=== PATIENT | female | born 1995 | race Caucasian/White ===

== ENCOUNTER 2022-11-27 18:14 | Emergency (ER) | payer MEDICAID, SELFPAY ==
[2022-11-27 18:16] VITALS: BP 156/82; PULSE 100; RESP 18; TEMP 37; O2SAT 99; BMI 48.3
--- NOTE | 2022-11-27 18:32 | ED.RN ---
pt stating she does not want to wait any longer and is going to conception.
== END 2022-11-27 18:32 | disposition left against medical advice (07) ==
LOC: ED 18:35
DX: R11.2 Nausea with vomiting, unspecified (principal); Z53.21 Procedure and treatment not carried out due to patient leaving prior to being seen by health care provider

== ENCOUNTER 2024-01-23 07:59 | Emergency (ER) | payer SELFPAY ==
[2024-01-23 08:01] VITALS: BP 156/91; PULSE 101; PULSE 102; RESP 28; TEMP 36; O2SAT 97; BMI 48.0
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
[2024-01-23 09:08] LABS: Internal QC Validated? YES +Cl - CLEAR BKGD; Pregnancy, Serum, hCG Quali. NEGATIVE Negative
[2024-01-23 09:17] LABS: Anion Gap 9 (5-15); BUN 7 mg/dL (7-18); BUN/Creat Ratio 9.7 RATIO (10-20); Calcium,Total 8.6 mg/dL (8.5-10.1); Chloride 110 mmol/L (98-107); Creatinine, Serum 0.72 mg/dL (0.55-1.02); EST Glomerular Filtration Rate 101 mL/min (>60); Est Glom Filt Rate - Afr Amer 122 mL/min (>60); Estimated Creatinine Clearance 150.82 ml/min; Glucose 94 mg/dL (74-106); Potassium 3.2 mmol/L (3.5-5.1); Sodium Level 140 mmol/L (136-145)
[2024-01-23 10:00] VITALS: BP 134/76; PULSE 88; RESP 16; TEMP 36.4; O2SAT 97
[2024-01-23 10:32] VITALS: BP 129/71; PULSE 68; RESP 15; TEMP 36.3; O2SAT 99
== END 2024-01-23 10:33 | disposition home or self-care (01) ==
PROVIDERS: Emergency Provider Emergency Medicine; Visit Provider Emergency Medicine
DX: S29.012A Strain of muscle and tendon of back wall of thorax, initial encounter (principal); Z68.42 Body mass index [BMI] 45.0-49.9, adult; Y04.8XXA Assault by other bodily force, initial encounter; J04.0 Acute laryngitis; E66.9 Obesity, unspecified; F17.210 Nicotine dependence, cigarettes, uncomplicated; F17.290 Nicotine dependence, other tobacco product, uncomplicated
CPT/HCPCS: 70491; 71250; 80048; 84703; 99283; Q9967; A4216

== ENCOUNTER 2024-04-27 22:08 | Emergency (ER) | payer SELFPAY ==
[2024-04-27 22:08] VITALS: BP 128/80; PULSE 102; RESP 22; TEMP 35.1; O2SAT 99
[2024-04-27] MEDS: Ondansetron ODT 4 MG Tablet PO (23:24)
[2024-04-27 23:34] LABS: Internal QC Validated? YES +Cl - CLEAR BKGD; Pregnancy, Urine Negative Negative
--- NOTE | 2024-04-27 23:42 | EDS_ITS ---
HPI History of Present Illness Chief Complaint: Nausea/Vomiting Informant: patient and spouse/S.O. Narrative Narrative: Patient is a 28-year-old female with no significant past medical history. She states that over the past 5 to 7 days she has been having bouts of nausea and vomiting. She denies any diarrhea or dysuria or abdominal pain. She denies any known sick contact. She states that she would have bouts of vomiting whether she ate or drank or not. However in the last 12 hours or so she was able to eat a sub and not have any bouts of vomit. She states she is concerned that she could be and that she had 1 home test that was positive and 1 that was negative and therefore comes in for evaluation [facility] Home Medications ?Medication ?Instructions ?Recorded ?Last Taken ?Type ondansetron 4 mg disintegrating 4 mg PO TID PRN nausea and 04/27/24 Unknown Rx tablet vomiting #21 tabs Allergy/AdvReac Type Severity Reaction Status Date / Time latex Allergy Rash Verified 04/27/24 22:11 Bleach (Sodium Hypochlorite) AdvReac Rash Verified 04/27/24 22:11 Surgical History (Updated 04/27/24 @ 22:27 by Mackenzie Medina) Tubal ligation status History of excision of pilonidal cyst Social History Smoking Status: Current every day smoker tobacco type: cigarettes and e- cigarettes ROS ROS ED Constitutional Constitutional ED: Denies chills or fever(s) ENT ENT ED: Denies sore throat Cardiovascular Cardiovascular: Denies chest pain Respiratory/Chest Respiratory/Chest: Denies cough or dyspnea Gastrointestinal Gastrointestinal: Reports nausea and vomiting; Denies abdominal pain, constipation or diarrhea Genitourinary Genitourinary ED: Denies dysuria, hematuria or urinary frequency Musculoskeletal Musculoskeletal: Denies back pain or myalgias Integumentary Denies rash Neurologic Neurologic: Denies headache(s) Hematologic/Lymphatic Hematologic/Lymphatic: Denies easy bleeding or easy bruising EXAM Physical Exam Const Vital Signs: 04/27/24 22:08 Temperature 95.2 F L Temperature Source Temporal Pulse Rate 102 H Respiratory Rate 22 H Blood Pressure 128/80 H Blood Pressure Mean 96 Pulse Ox 99 Oxygen Delivery Method Room Air Positive well nourished, well developed and obese General Appearance ED: well developed; Negative for pallor Nutritional Appearance: obese HEENT Reports dry mucous membranes HEENT Narrative: Mucous membranes are dry and tacky No tongue or lip swelling no oral lesions no airway edema or compromise No secondary changes in the posterior pharynx to suggest infection Mouth ED: Yes dry mucous membranes Mouth: dry mucous membranes Eyes PERRL and EOMs intact bilaterally General Eye ED: Negative for scleral icterus Neck supple Resp normal respiratory effort and clear to auscultation bilaterally Cardio regular rate and regular rhythm GI normal to inspection, nondistended, normoactive bowel sounds, non-tender, non- distended and no masses GI Narrative: No voluntary guarding or rigidity or pulsatile mass Negative Mera sign No pain over McBurney's point Auscultation: normoactive bowel sounds Palpation: soft Back/Spine no CVA tenderness Extremity normal to inspection Neuro oriented x3, CN's II-XII intact bilaterally and no sensory deficits noted Sensorium / Orientation: alert Motor Exam: strength 5/5 throughout Psych mental status grossly normal Skin no rashes or lesions noted Skin Narrative: Skin turgor is slightly increased General Skin Exam: Negative for jaundice or pallor MDM MDM MDM Narrative Medical decision making narrative: Patient presented to the ER with stable vitals and a soft nonsurgical abdomen. She reported bouts of nausea and vomiting throughout the week but recently was able to eat without recurrent symptoms. Differential diagnosis is for viral stomach infection such as Sneads virus versus rotavirus versus biliary colic versus acute cholecystitis versus pancreatitis versus dehydration versus acute kidney injury. An IV was attempted to be established but after 2 attempts there was no success. The patient did give a urine sample and therefore this was sent for as this was a main concern for her. Urine test was negative and after receiving Zofran patient had resolution of her nausea. We discussed obtaining an IV and checking abdominal labs and performing IV hydration but the patient does not want to undergo further IV attempt. As her dehydration is mild in nature I do not feel there is necessity and IV hydration as now that her vomiting is under control she can do this orally. Therefore patient will be discharged at this time with symptomatic care of Zofran History & Record Review Discussion w/independent historian: Patient and Significant other Lab Data Labs: Laboratory Results - last 24 hr 04/27/24 23:22 Urine Test Negative Discharge Plan Triage Chief Complaint: Nausea/Vomiting ED Provider: [place] Dx/Rx/DC Orders Clinical Impression: Nausea & vomiting, Mild dehydration Instructions: ED Dehydration (Adult), ED Gastroenteritis, Viral (Adult) Prescriptions: New ondansetron 4 mg tablet,disintegrating 4 mg PO TID PRN (Reason: nausea and vomiting) Qty: 21 0RF Primary Care Provider: Care Physician,No Primary Referrals: Shaheen Munroe MD [Med Staff - Active Staff] - Care Physician,No Primary [Primary Care Provider] - Print Language: Luxembourgish Disposition Disposition: Home, Self Care Discharge Date/Time: 04/27/24 23:55
== END 2024-04-27 23:55 | disposition home or self-care (01) ==
PROVIDERS: Emergency Provider Emergency Medicine; Visit Provider Emergency Medicine
DX: R11.2 Nausea with vomiting, unspecified (principal); E86.0 Dehydration; F17.210 Nicotine dependence, cigarettes, uncomplicated; F17.290 Nicotine dependence, other tobacco product, uncomplicated
CPT/HCPCS: 81025; 99282; A4216

== ENCOUNTER → 2025-06-30 | Outpatient (CLI) | payer SELFPAY ==
--- OUTSIDE RECORDS SUMMARY | 2025-06-30 15:25 | XMS RPT_ITS | CCD ---
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 DIMER, MORPH, CBC, DIFF, BMP #### [address] [address] Neutrophil, Abs Manual 4.3 10 3/mcL Normal 2.9-6.2 [facility] ([place] Comment on above: Performed By: #### M DW, GFR, TROPHS, DIMER, MORPH, CBC, DIFF, BMP #### [address] [address] Nucleated RBC 0.0 /100 WBC Normal [facility] ([place]) Comment on above: Performed By: #### M DW, GFR, TROPHS, DIMER, MORPH, CBC, DIFF, BMP #### [address] [address] .Morphon 12-06-2023 Anisocytosis Ql (Bld) 1+ Normal [facility] ([place]) Comment on above: Performed By: #### M DW, GFR, TROPHS, DIMER, MORPH, CBC, DIFF, BMP #### [address] [address] Hypochrom 1+ Normal [facility] ([place] Comment on above: Performed By: #### M DW, GFR, TROPHS, DIMER, MORPH, CBC, DIFF, BMP #### [address] [address] Large Platelets Few Normal [facility] ([place]) Comment on above: Performed By: #### M DW, GFR, TROPHS, DIMER, MORPH, CBC, DIFF, BMP #### [address] [address] Platelet Estimate Normal Normal [facility] ([place] Comment on above: Performed By: #### M DW, GFR, TROPHS, DIMER, MORPH, CBC, DIFF, BMP #### [address] [address] BMPon 12-06-2023 Potassium [Moles/Vol] 3.4 mmol/L Low 3.5-5.1 [facility] ([place]) Comment on above: Performed By: #### M DW, GFR, TROPHS, DIMER, MORPH, CBC, DIFF, BMP #### [address] [address] BUN/Creatinine Ratio 14 ratio Normal 7-27 [facility] ([place]) Comment on above: Performed By: #### M DW, GFR, TROPHS, DIMER, MORPH, CBC, DIFF, BMP #### [address] [address] Calcium [Mass/Vol] 8.7 mg/dL Normal 8.4-10.2 [facility] ([place]) Comment on above: Performed By: #### M DW, GFR, TROPHS, DIMER, MORPH, CBC, DIFF, BMP #### [address] [address] Chloride [Moles/Vol] 103 mmol/L Normal 98-107 [facility] ([place]) Comment on above: Performed By: #### M DW, GFR, TROPHS, DIMER, MORPH, CBC, DIFF, BMP #### [address] [address] CO2 [Moles/Vol] 27 mmol/L Normal 22-29 [facility] ([place]) Comment on above: Performed By: #### M DW, GFR, TROPHS, DIMER, MORPH, CBC, DIFF, BMP #### [address] [address] Creatinine [Mass/Vol] 0.80 mg/dL Normal 0.55-1.02 [facility] ([place]) Comment on above: Performed By: #### M DW, GFR, TROPHS, DIMER, MORPH, CBC, DIFF, BMP #### [address] [address] Electrolyte Balance 10.0 mEq/L Normal 4.0-15.0 [facility] ([place]) Comment on above: Performed By: #### M DW, GFR, TROPHS, DIMER, MORPH, CBC, DIFF, BMP #### [address] [address] Glucose [Mass/Vol] 131 mg/dL High 70-105 [facility] ([place]) Comment on above: Performed By: #### M DW, GFR, TROPHS, DIMER, MORPH, CBC, DIFF, BMP #### [address] [address] Sodium [Moles/Vol] 140 mmol/L Normal 136-145 [facility] ([place]) Comment on above: Performed By: #### M DW, GFR, TROPHS, DIMER, MORPH, CBC, DIFF, BMP #### [address] [address] Urea nitrogen [Mass/Vol] 11 mg/dL Normal 7-18 [facility] ([place] Comment on above: Performed By: #### M DW, GFR, TROPHS, DIMER, MORPH, CBC, DIFF, BMP #### [address] [address] CBCon 12-06-2023 Erythrocyte distribution width (RBC) [Ratio] 14.0 % Normal 11.5-14.5 [facility] ([place]) Comment on above: Performed By: #### M DW, GFR, TROPHS, DIMER, MORPH, CBC, DIFF, BMP #### [address] [address] Hematocrit (Bld) [Volume fraction] 42.5 % Normal 37.0-47.0 [facility] ([place] Comment on above: Performed By: #### M DW, GFR, TROPHS, DIMER, MORPH, CBC, DIFF, BMP #### [address] [address] Hgb 14.9 G/dL Normal 12.0-16.0 [facility] ([place] Comment on above: Performed By: #### M DW, GFR, TROPHS, DIMER, MORPH, CBC, DIFF, BMP #### [address] [address] MCH (RBC) [Entitic mass] 32.6 pg High 27.0-31.2 [facility] ([place] Comment on above: Performed By: #### M DW, GFR, TROPHS, DIMER, MORPH, CBC, DIFF, BMP #### [address] [address] MCHC 34.9 G/dL Normal 33.0-37.0 [facility] ([place] Comment on above: Performed By: #### M DW, GFR, TROPHS, DIMER, MORPH, CBC, DIFF, BMP #### [address] [address] MCV (RBC) [Entitic vol] 93.2 fL Normal 80.0-94.0 [facility] ([place] Comment on above: Performed By: #### M DW, GFR, TROPHS, DIMER, MORPH, CBC, DIFF, BMP #### [address] [address] Platelet 267 10 3/mcL Normal 130-400 [facility] ([place]) Comment on above: Performed By: #### M DW, GFR, TROPHS, DIMER, MORPH, CBC, DIFF, BMP #### [address] [address] Platelet mean volume (Bld) [Entitic vol] 8.6 fL Normal 7.4-10.4 [facility] ([place]) Comment on above: Performed By: #### M DW, GFR, TROPHS, DIMER, MORPH, CBC, DIFF, BMP #### [address] [address] RBC 4.57 10 6/mcL Normal 4.20-5.40 [facility] ([place]) Comment on above: Performed By: #### M DW, GFR, TROPHS, DIMER, MORPH, CBC, DIFF, BMP #### [address] [address] WBC 6.3 10 3/mcL Normal 4.6-10.8 [facility] ([place]) Comment on above: Performed By: #### M DW, GFR, TROPHS, DIMER, MORPH, CBC, DIFF, BMP #### [address] [address] DIMERon 12-06-2023 D-Dimer <200 Normal 0-230 [facility] ([place]) Comment on above: Result Comment: DDN: Results reported in D-DU ng/mL. Negative for D-dimer. DVT/PE is highly unlikely. Note: False negative results may be seen in patients on anticoagulant therapy. The result of the D-Dimer test should be evaluated in the context of all the clinical and laboratory data available. In those instances where the laboratory result does not agree with the clinical evaluation, additional tests should be performed accordingly. If the D-Dimer result is used to exclude DVT or PE, the recommended cutoff value is less than 230 ng/mL. The D-Dimer result should not be used alone to rule in DVT/PE, but should be used in conjunction with a clinical pretest probability (PTP)assessment model to exclude venous thromboembolism (VTE) in outpatients suspected of deep venous thrombosis (DVT) and pulmonary embolism (PE). Performed By: #### M DW, GFR, TROPHS, DIMER, MORPH, CBC, DIFF, BMP #### [address] [place] [address] LABORATORYOrdered By: SYSTEM SYSTEM on 12-06-2023 Anisocytosis Ql (Bld) 1+ *NA* (12/06/23 3:07 AM) Invalid Interpretation Code AO Workflow SS Basophil %, Manual 1.0 % Normal 0.0 - 2.5 % AO Wo rkflow SS Basophil, Abs Manual 0.1 103/mcL Normal 0.0 - 0 .2 10^3/mcL AO Workflow SS Calcium [Mass/Vol] 8.7 mg/dL Normal 8.4 - 10. 2 mg/dL AO ADM SS Chloride [Moles/Vol] 103 mmol/L Normal 98 - 10 7 mmol/L AO ADM SS CO2 [Moles/Vol] 27 mmol/L Normal 22 - 29 mmol/L AO ADM SS Creatinine [Mass/Vol] 0.80 mg/dL Normal 0.55 - 1.02 mg/dL AO ADM SS Electrolyte Balance 10.0 mEq/L Normal 4.0 - 15 .0 mEq/L AO ADM SS Eosinophil %, Manual 0.0 % Normal 0.0 - 7.0 % AO Workflow SS Eosinophils (Bld) [#/Vol] 0.0 103/mcL Normal 0.0 - 0.4 10^3/mcL AO Workflow SS Erythrocyte distribution width (RBC) [Ratio] 14.0 % Normal 11.5 - 14.5 % AO Workflow SS GFR/1.73 sq M.predicted among blacks MDRD (S/P/Bld) [Vol rate/Area] 102 ml/min/1.73sqm Invalid Interpretation Code AO Chemistry S Comment on above: Interpretive Data: GFR Population mean for , Non- Americans Ages 20-29 = 116 mL/min/1.73 sq.m. Ages 30-39 = 107 mL/min/1.73 sq.m. Ages 40-49 = 99 mL/min/1.73 sq.m. Ages 50-59 = 93 mL/min/1.73 sq.m. Ages 60-69 = 85 mL/min/1.73 sq.m. Ages 70+ = 75 mL/min/1.73 sq.m. Chronic Kidney Disease: Less than 60 mL/min/1.73 square meters End Stage Renal Disease: Less than 15 mL/min/1.73 square meters GFR/1.73 sq M.predicted among non-blacks MDRD (S/P/Bld) [Vol rate/Area] 84 ml/min/1.73sqm Invalid Interpretation Code AO Chemistry S Comment on above: Interpretive Data: GFR Population mean for , Non- Americans Ages 20-29 = 116 mL/min/1.73 sq.m. Ages 30-39 = 107 mL/min/1.73 sq.m. Ages 40-49 = 99 mL/min/1.73 sq.m. Ages 50-59 = 93 mL/min/1.73 sq.m. Ages 60-69 = 85 mL/min/1.73 sq.m. Ages 70+ = 75 mL/min/1.73 sq.m. Chronic Kidney Disease: Less than 60 mL/min/1.73 square meters End Stage Renal Disease: Less than 15 mL/min/1.73 square meters Glucose [Mass/Vol] 131 mg/dL High 70 - 105 mg/dL AO ADM SS Hematocrit (Bld) [Volume fraction] 42.5 % Normal 37.0 - 47.0 % AO Workflow SS Hemoglobin (Bld) [Mass/Vol] 14.9 G/dL Normal 12.0 - 16.0 G/dL AO Workflow SS Hypochromia Ql (Bld) 1+ *NA* (12/06/23 3:07 AM) Invalid Interpretation Code AO Workflow SS Large Platelets Few *NA* (12/06/23 3:07 AM) Invalid Interpretation Code AO Workflow SS Lymphocyte %, Manual 24.0 % Normal 10.0 - 50.0 % A O Workflow SS Lymphocyte, Abs Manual 1.5 103/mcL Normal 0.8 - 3.9 10^3/mcL AO Workflow SS MCH (RBC) [Entitic mass] 32.6 pg High 27.0 - 31.2 pg AO Workflow SS MCHC 34.9 G/dL Normal 33.0 - 37.0 G/dL AO Workflow SS MCV (RBC) [Entitic vol] 93.2 fL Normal 80.0 - 94.0 fL AO Workflow SS Monocyte %, Manual 6.0 % Normal 1.7 - 13.0 % AO W orkflow SS Monocyte distribution width Auto (Bld) [Entitic vol] 24.02 1 High 0.00 - 20.00 AO Workflow SS Comment on above: Result Comment: For adults in ED, MDW>20.0 may be associated with a higher risk of sepsis during the first 12hrs of hospital admission The predictive value of MDW for identifying sepsis in patients with hematological abnormalities has not been established Monocyte, Abs Manual 0.4 103/mcL Normal 0.2 - 1 .0 10^3/mcL AO Workflow SS Neutrophil %, Manual 69.0 % Normal 37.0 - 80.0 % A O Workflow SS Neutrophil, Abs Manual 4.3 103/mcL Normal 2.9 - 6.2 10^3/mcL AO Workflow SS Nucleated RBC 0.0 /100 WBC Invalid Interpretation Code AO Workflow SS Platelet Estimate Normal *NA* (12/06/23 3:07 AM) Invalid Interpretation Code AO Workflow SS Platelet mean volume (Bld) [Entitic vol] 8.6 fL Normal 7.4 - 10.4 fL AO Workflow SS Platelets (Bld) [#/Vol] 267 103/mcL Normal 130 - 400 10^3/mcL AO Workflow SS Potassium [Moles/Vol] 3.4 mmol/L Low 3.5 - 5.1 mmol/L AO ADM SS RBC (Bld) [#/Vol] 4.57 106/mcL Normal 4.20 - 5.4 0 10^6/mcL AO Workflow SS Sodium [Moles/Vol] 140 mmol/L Normal 136 - 145 mmol/L AO ADM SS Troponin I.cardiac DL <= 0.01 ng/mL [Mass/Vol] 4 ng/L Normal 0 - 51 ng/L AO ADM SS Comment on above: Interpretive Data: H igh Sensitive Troponin I Reference Ranges: Female: 0-51 ng/L Male: 0-76 ng/L Testing performed on Surgient using a homogeneous sandwich chemiluminescent immunoassay based on [employer] technology. Urea nitrogen [Mass/Vol] 11 mg/dL Normal 7 - 18 mg/dL AO ADM SS Urea nitrogen/Creatinine [Mass ratio] 14 ratio Normal 7 - 27 ratio AO ADM SS WBC (Bld) [#/Vol] 6.3 103/mcL Normal 4.6 - 10.8 10^3/mcL AO Workflow SS LABORATORYOrdered By: Estefania Molina on 12-06-2023 Fibrin D-dimer DDU (PPP) [Mass/Vol] ng/mL D-DU Normal 0 - 230 ng/mL D-DU AO [employer] SS Comment on above: Result Comment: DDN: Results reported in D-DU ng/mL. Negative for D-dimer. DVT/PE is highly unlikely. Note: False negative results may be seen in patients on anticoagulant therapy. Interpretive Data: T he result of the D-Dimer test should be evaluated in the context of all the clinical and laboratory data available. In those instances where the laboratory result does not agree with the clinical evaluation, additional tests should be performed accordingly. If the D-Dimer result is used to exclude DVT or PE, the recommended cutoff value is less than 230 ng/mL. The D-Dimer result should not be used alone to rule in DVT/PE, but should be used in conjunction with a clinical pretest probability (PTP)assessment model to exclude venous thromboembolism (VTE) in outpatients suspected of deep venous thrombosis (DVT) and pulmonary embolism (PE). TROPHSon 12-06-2023 High Sensitivity Troponin I 4 ng/L Normal 0-51 [facility] ([place]) Comment on above: Result Comment: High Sensitive Troponin I Reference Ranges: Female: 0-51 ng/L Male: 0-76 ng/L Testing performed on Surgient using a homogeneous sandwich chemiluminescent immunoassay based on [employer] technology. Performed By: #### M DW, GFR, TROPHS, DIMER, MORPH, CBC, DIFF, BMP #### [address] [address] XR CHEST 1 VIEWon 12-06-2023 XR CHEST 1 VIEW ORIGINAL EXAMINATION: ONE XRAY VIEW OF THE CHEST12/06/2023 3:24 am COMPARISON: None. HISTORY: ORDERING SYSTEM PROVIDED HISTORY: Reason for Exam: chest pain FINDINGS: Cardiomediastinal contours are within normal limits. No focal consolidation or pulmonary edema. No pneumothorax or pleural effusion. No acute osseous abnormalities. IMPRESSION: No acute radiographic process. I have personally reviewed the images of this examination, and agree with the resident's findings and interpretation. Interpreted by: Slim Kirkpatrick MD Preliminary Report By: Kehinde Ch Electronically signed By Slim Kirkpatrick MD Dictated Date: 12/06/2023 3:28:08 AM Prelim Date: 12/06/2023 3:29:12 AM Sign Date: 12/06/2023 3:33:32 AM Ordering Provider: LOREN Uribe [facility] ([place]) CNCOon 03-17-2021 CNCO Letter Text Normal [facility] Vital Signs Date Time Vital Sign Value Performing Clinician Facility 12-06-2023 03:59-0400 Diastolic Blood Pressure Non-Invasive 72 mm[Hg] DR LOREN LYN DO [facility] 12-06-2023 03:59-0400 Heart rate 96 /min DR LOREN LYN DO [facility] 12-06-2023 03:59-0400 Respiratory rate 20 /min DR LOREN LYN DO [facility] 12-06-2023 03:59-0400 Systolic Blood Pressure Non-Invasive 134 mm[Hg] DR LOREN LYN DO [facility] 12-06-2023 02:36-0400 Body temperature 98.42 [degF] DR LOREN LYN DO [facility] 12-06-2023 02:36-0400 Diastolic Blood Pressure Non-Invasive 84 mm[Hg] DR LOREN LYN DO [facility] 12-06-2023 02:36-0400 Heart rate 120 /min DR LOREN LYN DO [facility] 12-06-2023 02:36-0400 Respiratory rate 20 /min DR LOREN LYN DO [facility] 12-06-2023 02:36-0400 Systolic Blood Pressure Non-Invasive 135 mm[Hg] DR LOREN LYN DO [facility] 11-27-2022 18:16-0400 Body height 162.56 cm [facility] 11-27-2022 18:16-0400 Body mass index (BMI) [Ratio] 48.3 kg/m2 [facility] 11-27-2022 18:16-0400 Body temperature 98.6 [degF] [facility] 11-27-2022 18:16-0400 Body weight 127.73 kg [facility] 11-27-2022 18:16-0400 Diastolic blood pressure 82 mm[Hg] [facility] 11-27-2022 18:16-0400 Heart rate 100 /min [facility] 11-27-2022 18:16-0400 Respiratory rate 18 /min [facility] 11-27-2022 18:16-0400 SaO2% (BldA) [Mass fraction] 99 % [facility] 11-27-2022 18:16-0400 Systolic blood pressure 156 mm[Hg] [facility] 08-01-2021 20:59-0500 Body temperature 98.24 [degF] ERICKA EUGENE MD [facility] 08-01-2021 20:59-0500 Body weight 121.4 kg ERICKA EUGENE MD [facility] 08-01-2021 20:59-0500 Diastolic blood pressure 75 mm[Hg] ERICKA EUGENE MD [facility] 08-01-2021 20:59-0500 Heart rate 67 /min ERICKA EUGENE MD [facility] 08-01-2021 20:59-0500 Respiratory rate 18 /min ERICKA EUGENE MD [facility] 08-01-2021 20:59-0500 Systolic blood pressure 148 mm[Hg] ERICKA EUGENE MD [facility] Encounters Encounter Date Encounter Type Care Provider Facility Start: 04-27-2024 End: 04-27-2024 Emergency department patient visit Holland Martínez Facility:[facility] Start: 01-23-2024 End: 01-23-2024 Emergency department patient visit Will [address] Facility:[facility] Start: 12-06-2023 End: 12-06-2023 Emergency department patient visit DR LOREN LYN DO Facility: Start: 12-06-2023 End: 12-06-2023 Emergency department patient visit DR LOREN LYN DO [facility] Start: 11-27-2022 End: 11-27-2022 Emergency department patient visit [facility] Start: 08-01-2021 End: 08-01-2021 Emergency department patient visit ERICKA EUGENE MD [facility] Procedures Date Procedure Procedure Detail Performing Clinician Start: 09-29-2019 Pilonidal cyst (morp hologic abnormality) ERICKA EUGENE MD Start: 12-12-2017 Laparoscopic salpingectomy ERICKA EUGENE MD Cyst - pilonidal (disorder) ERICKA EUGENE MD Ligation of fallopian tube Aniceto EUGENE MD Immunizations Immunization Date Immunization Notes Care Provider Israel lindsay 10-11-2017 tetanus toxoid, redu jie diphtheria toxoid, and acellular pertussis vaccine, adsorbed; Translations: [Boostrix (Tdap)] ERICKA EUGENE MD [facility] Payers Date Payer Category Payer Self-pay [id number] 2023 Private Health Insurance [id number] 2012 Unknown [facility] [employer] [id number] 1993 Unknown [id number] Unknown [id number] Unknown [id number] Social History Date Type Detail Facility Start: 09-23-2019 Heavy tobacco smoker (finding) [facility] Sex Assigned At [facility] Start: 03-12-2014 Tobacco smoking status MAIS Unknown if ever smoked [facility] Start: 1995 Sex Assigned At Female [facility] NEGATED: Highlighted row [facility] Functional Status Date Assessment Result Facility 12-06-2023 Functional Status Assistive Device None A [facility] 12-06-2023 Functional Status Repositions self [facility] Mental Status Date Assessment Result Facility 12-06-2023 Mental Status Orientation Oriented x [facility] 12-06-2023 Mental Status [facility] Discharge instructions 12-06-2023 Note Date & Type Note Facility 12-06-2023 Hospital Discharg e instructions Patient Education 12/06/2023 04:06:29 Adult Self-Care for Colds Adult Self-Care for Colds Colds are caused by viruses. They can't be cured with antibiotics. However, you can ease symptoms and support your body's efforts to heal itself. No matter which symptoms you have, be sure to: Drink plenty of fluids (water or clear soup) Stop smoking and drinking alcohol Get plenty of rest Understand a fever Take your temperature several times a day. If your fever is 100.4 F (38.0 C) for more than a day, call your healthcare provider. Relax, lie down. Go to bed if you want. Just get off your feet and rest. Also, drink plenty of fluids to avoid dehydration. Take acetaminophen or a nonsteroidal anti-inflammatory agent (NSAID), such as ibuprofen. Treat a troubled nose kindly Breathe steam or heated humidified air to open blocked nasal passages. station inspector a hot shower or use a vaporizer. Be careful not to get burned by the steam. Saline nasal sprays and decongestant tablets help open a stuffy nose. Antihistamines can also help, but they can cause side effects such as drowsiness and drying of the eyes, nose, and mouth. Soothe a sore throat and cough Gargle every 2 hours with 1/4 teaspoon of salt dissolved in 1/2 cup of warm water. Suck on throat lozenges and cough drops to moisten your throat. Cough medicines are available but it is unclear how well they actually work. Take acetaminophen or an NSAID, such as ibuprofen, to ease throat pain Ease digestive problems Put fluids back into your body. Take frequent sips of clear liquids such as water or broth. Avoid drinks that have a lot of sugar in them, such as juices and sodas. These can make diarrhea worse. Older children and adults can drink sports drinks. As your appetite returns, you can resume your normal diet. Ask your healthcare provider if there are any foods you should avoid. When you first notice symptoms, ask your healthcare provider if antiviral medicines are appropriate. Antibiotics should not be taken for colds or flu. Also, call your healthcare provider if you have any of the following symptoms or if you aren't feeling better after 7 days: Shortness of breath Pain or pressure in the chest or belly (abdomen) Worsening symptoms, especially after a period of improvement Fever of 100.4 F (38.0 C) or higher, or fever that doesn't go down with medicine Sudden dizziness or confusion Severe or continued vomiting Signs of dehydration, including extreme thirst, dark urine, infrequent urination, dry mouth Spotted, red, or very sore throat [id number] [employer]. [address] [place] [address]. All rights reserved. This information is not intended as a substitute for professional medical care. Always follow your healthcare professional's instructions. Follow Up Care 12/06/2023 02:31:40 With:RUIZ HONG DO Address: [address] [place] [phone] When:2-4 days [facility] Clinical Note 12-06-2023 Note Date & Type Note Facility 12-06-2023 Note Discharge Instructions Thank you for allowing [facility] to assist you with your healthcare needs. The following is important discharge information regarding your hospital visit. Diagnosis from Today's Visit Cough What to Do Next Instructions from Your Care Team No qualifying data available. Post Acute Orders No qualifying data available. You Need to Schedule the Following Appointments Follow Up with RUIZ HONG DO When Within 2-4 days Where: [address] [place] [phone] Allergies Bleach (Rash) Latex (Rash) Medications Please ask your primary doctor or pharmacist before taking any other medication not listed, including over the counter drugs, herbal medications, vitamins and or supplements as they may interact with your home medications. What How Much When Why Instructions Last Dose New benzonatate (Tessalon Perles 100 mg oral capsule) 1 cap by mouth Three (3) times a day Duration: 7 Days Printed Prescription New cetirizine (Zyrtec 10 mg oral tablet) 1 tab(s) by mouth Once a day Duration: 7 Days Printed Prescription Unchanged acetaminophen-hydrocodone ([place] 325- 5 mg oral tablet) 1 tab(s) by mouth Every 6 hours as needed for as needed for pain UTI - Urinary tract infection Duration: 1 Days Unchanged albuterol (ProAir HFA MDI (90 mcg/ inh) inhalation aerosol) 1 puff(s) by inhalation Every 4 hours as needed for for wheezing Unchanged cephalexin (cephalexin 500 mg oral capsule) 1 cap by mouth Three (3) times a day UTI - Urinary tract infection Duration: 5 Days Unchanged ibuprofen (ibuprofen 800 mg oral tablet) take 1 tablet by mouth every 6 hours if needed for pain Unchanged ondansetron (Zofran 4 mg oral tablet) 1 tab(s) by mouth Every 6 hours as needed for Nausea/Vomiting Vomiting without nausea Nausea and vomiting Please take this list to your next doctor s visit. Bring all medications you take, including over the counter medications, herbals and other supplements with you to your doctor s visit. Patients and families are reminded to discard old lists and to update any records with all medication providers or retail pharmacies. Education Materials Adult Self-Care for Colds Colds are caused by viruses. They can't be cured with antibiotics. However, you can ease symptoms and support your body's efforts to heal itself. No matter which symptoms you have, be sure to: Drink plenty of fluids (water or clear soup) Stop smoking and drinking alcohol Get plenty of rest Understand a fever Take your temperature several times a day. If your fever is 100.4 F (38.0 C) for more than a day, call your healthcare provider. Relax, lie down. Go to bed if you want. Just get off your feet and rest. Also, drink plenty of fluids to avoid dehydration. Take acetaminophen or a nonsteroidal anti-inflammatory agent (NSAID), such as ibuprofen. Treat a troubled nose kindly Breathe steam or heated humidified air to open blocked nasal passages. station inspector a hot shower or use a vaporizer. Be careful not to get burned by the steam. Saline nasal sprays and decongestant tablets help open a stuffy nose. Antihistamines can also help, but they can cause side effects such as drowsiness and drying of the eyes, nose, and mouth. Soothe a sore throat and cough Gargle every 2 hours with 1/4 teaspoon of salt dissolved in 1/2 cup of warm water. Suck on throat lozenges and cough drops to moisten your throat. Cough medicines are available but it is unclear how well they actually work. Take acetaminophen or an NSAID, such as ibuprofen, to ease throat pain Ease digestive problems Put fluids back into your body. Take frequent sips of clear liquids such as water or broth. Avoid drinks that have a lot of sugar in them, such as juices and sodas. These can make diarrhea worse. Older children and adults can drink sports drinks. As your appetite returns, you can resume your normal diet. Ask your healthcare provider if there are any foods you should avoid. When you first notice symptoms, ask your healthcare provider if antiviral medicines are appropriate. Antibiotics should not be taken for colds or flu. Also, call your healthcare provider if you have any of the following symptoms or if you aren't feeling better after 7 days: Shortness of breath Pain or pressure in the chest or belly (abdomen) Worsening symptoms, especially after a period of improvement Fever of 100.4 F (38.0 C) or higher, or fever that doesn't go down with medicine Sudden dizziness or confusion Severe or continued vomiting Signs of dehydration, including extreme thirst, dark urine, infrequent urination, dry mouth Spotted, red, or very sore throat [id number] [employer]. [address] [place] [address]. All rights reserved. This information is not intended as a substitute for professional medical care. Always follow your healthcare professional's instructions. Additional Information VACCINATE! IT SAVES LIVES! Members of the community who have not yet received the COVID-19 vaccine and would like to receive it can visit one of [facility] vaccine clinics. There are many vaccine clinic locations within the [facility]. For locations and available times, please visit [email or web address].[email or web address]/. It is important to note that some COVID mobile vaccine clinics are held outdoors and may be canceled in rainy or stormy conditions. To learn more about pediatric vaccinations (ages 5-11), we invite you to visit the [facility] webpage. [email or web address]/[email or web address]-[email or web address] -Questions.html To learn more about the COVID-19 vaccine, we invite you to visit the CDC website for a list of frequently asked questions. https://www.cdc.gov/coronavirus/2019-n cov/vaccines/faq.html [facility] Patient Portal Access Instructions: Stay connected with your healthcare team and access your personal medical information anytime with the [facility] Patient Portal. If you would like a full copy of your medical records please contact the [facility] Medical Records Department Sunday through Sunday between 8a.m. and 4:30p.m. Please follow the directions below to access the portal: 1.Access the email account you provided upon registration to the [facility].2.Look for an invitation email from [facility].3.Open the email and access the invitation link: Accept Invitation to [facility]4.Fill in the required hutson to create your account. Sign into [email or web address] with your username and password that you created in the above steps to stay up to date. You can then view a summary of results, a summary of your visits, and the ability to download your summaries to your computer or send the information securely to a physician. Remember that your healthcare information is confidential, so carefully consider who you will allow to register on the [facility] Patient Portal for access to your information. You can also access the [facility] Patient Portal on the [employer]. Simply click on Health Records under Health Data and then click on the [employer] logo. HOW TO SAFELY DISPOSE OF PRESCRIPTION MEDICATIONS Please use one of the following methods to safely dispose of your unused medications. 1.Use a drug disposal kit: the drug disposal pouch allows you to safely discard your old and unused drugs. Ask your nurse to give you one when you are discharged.2.Visit a local take-back location: Many local pharmacies and police departments have programs that collect old and unwanted prescription drugs. Call your local pharmacy or go to http://Elderscan.[employer] Media/4B4Ku7t to find one close to you.3.Make use of household items: Use cat litter or old coffee grounds to dispose medications if other options are not available. Mix your drugs with these household products, seal them in an airtight container and throw it into the garbage. Call [facility]: [phone] to be sure your drugs can be disposed of in this way. Some medicines may require a different approach.4.Never flush your medications down the toilet. IF YOU HAVE BEEN PRESCRIBED AN OPIOIDS FOR PAIN If you have been prescribed an opioid (such as hydrocodone, oxycodone or morphine), it is critical to understand the possible side effects and risks of opioid pain medications. Even when taken as directed, opioids can have several side effects including: Tolerance, meaning you might need to take more of a medication for the same pain relief. Nausea, vomiting and/or constipation. Sleepiness, dizziness, dry mouth, confusion, depression or itching. Physical dependence, meaning you have withdrawal symptoms when a medication is stopped ? this can develop within a few days. KNOW YOUR RESPONSIBILITIES It is important to know exactly how much and how often to take the opioid pain medications you are prescribed. Never take opioids in higher amounts or more often than prescribed. Do not combine opioids with alcohol or other drugs that cause drowsiness, such as benzodiazepines, also known as benzos, including diazepam and alprazolam, muscle relaxants or sleep aids. Never sell or share prescription opioids. This is illegal. Store opioids in a secure place and out of reach of others (including children, family, friends and visitors). The last page(s) of this document has been signed and retained as a CHART COPY Signatures Patient Education Materials Adult Self-Care for Colds Medication Leaflets My discharge plan and instructions have been reviewed and explained to me and ILUDWIN TIA J understand my current condition and have read and understand these discharge instructions. I have received a written copy of the plan/instructions. If I have questions, I am aware that I should contact my doctor. Patient/Customer Supply Chain Analyst Signature: _ Date/Time: Relationship to Patient: Witness Name/Signature: Date/Time: [facility] Clinical Note 12-06-2023 Note Date & Type Note Facility 12-06-2023 Note ORIGINAL EXAMINATION: ONE XRAY VIEW OF THE CHEST12/06/2023 3:24 am COMPARISON: None. HISTORY: ORDERING SYSTEM PROVIDED HISTORY: Reason for Exam: chest pain FINDINGS: Cardiomediastinal contours are within normal limits. No focal consolidation or pulmonary edema. No pneumothorax or pleural effusion. No acute osseous abnormalities. IMPRESSION: No acute radiographic process. I have personally reviewed the images of this examination, and agree with the resident's findings and interpretation. Interpreted by: Slim Kirkpatrick MD Preliminary Report By: Kehinde Ch Electronically signed By Slim Kirkpatrick MD Dictated Date: 12/06/2023 3:28:08 AM Prelim Date: 12/06/2023 3:29:12 AM Sign Date: 12/06/2023 3:33:32 AM Ordering Provider: LOREN LYN [facility] Clinical Note 12-06-2023 Note Date & Type Note Facility 12-06-2023 Note Sinus tachycardia RSR' in V1 or V2, right VCD or RVH Nonspecific T abnormalities, lateral leads Electronic Signature: LOREN LYN DO 12/06/2023 02:56:44 [facility] Hospital Discharge instructions 08-01-2021 Note Date & Type Note Facility 08-01-2021 Hospital Discharg e instructions Patient Education 08/01/2021 21:54:39 DIARRHEA, Viral (6y-Adult) Viral Diarrhea (Adult) Diarrhea is usually due to viral gastroenteritis, another name for the stomach flu. This virus affects the stomach and intestinal tract and usually lasts 2 to 7 days. The main danger from repeated diarrhea is dehydration -- the loss of excess water and minerals from the body. Antibiotics are not effective in this illness, but simple home treatment will be helpful. Home Care: If symptoms are severe, rest at home for the next 24 hours or until you are feeling better. You may use acetaminophen (Tylenol) or ibuprofen (Motrin, Advil) to control fever unless another medicine was prescribed. [ NOTE : If you have chronic liver or kidney disease or ever had a stomach ulcer or GI bleeding, talk with your doctor before using these medicines.] (Aspirin should never be used in anyone under 18 years of age who is ill with a fever. It may cause severe liver damage.) Avoid tobacco, caffeine and alcohol, which may worsen your symptoms. If anti-diarrhea medicine was prescribed, take this only as directed. Sometimes anti-diarrhea medicine can make your condition worse if the cause is an infectious diarrhea. Therefore, anti-diarrhea medicine should not be taken for this condition unless advised by your doctor. During The First 12-24 Hours follow the diet below: BEVERAGES: Sport drinks like Gatorade, soft drinks without caffeine; jeannette alberto, mineral water (plain or flavored), decaffeinated tea and coffee. SOUPS: Clear broth, consomm and bouillon DESSERTS: Plain gelatin (Jell-O), popsicles and fruit juice bars. During The Next 24 Hours you may add the following to the above: Hot cereal, plain toast, bread, rolls, crackers Plain noodles, rice, mashed potatoes, chicken noodle or rice soup Unsweetened canned fruit (avoid pineapple), bananas Limit fat intake to less than 15 grams per day by avoiding margarine, butter, oils, mayonnaise, sauces, gravies, fried foods, peanut butter, meat, poultry and fish. Limit fiber; avoid raw or cooked vegetables, fresh fruits (except bananas) and bran cereals. Limit caffeine and chocolate. No spices or seasonings except salt. During The Next 24 Hours Gradually resume a normal diet, as you feel better and your symptoms lessen. Follow Up with your doctor as advised. Call if not improving within 24 hours or if diarrhea lasts more than one week. If a stool (diarrhea) sample was taken, you may call in 2 days (or as directed) for the results. Get Prompt Medical Attention if any of the following occur: Increasing abdominal pain or constant lower right abdominal pain Continued vomiting (unable to keep liquids down) Frequent diarrhea (more than 5 times a day) Blood in vomit or stool (black or red color) Reduced oral intake Dark urine, reduced urine output Weakness, dizziness, fainting Drowsiness, confusion, stiff neck or seizure Fever of 100.4 F (38 C) oral or higher, not better with fever medication [place] [id number] [employer]. [address] [place] [address]. All rights reserved. This information is not intended as a substitute for professional medical care. Always follow your healthcare professional's instructions. Follow Up Care 08/01/2021 20:51:58 With:RUIZ HONG DO Address: [phone] When:2-4 days [facility] Evaluation + Plan note Note Date & Type Note Facility Evaluation + Plan note No data available for this section [facility] Evaluation note Note Date & Type Note Facility Evaluation note No assessment information availa [facility] Work Phone: Summary note Note Date & Type Note Facility Summary note LASHONDA Allen: PERFORM Event Display: Patient Summary Documents Authored Date: [id number] [facility] Summary Purpose Family History No Family History Records Found No data available for this section No Family History Records FoundNo Family History Records Found Advance Directives No Advanced Directives Records FoundNo Advanced Directives Records FoundNo Advanced Directives Records Found Chief Complaint and Reason for Visit Chief Complaint N/V Additional Source Comments INFORMATION SOURCE (unrecogn ized section and content) DATE CREATED AUTHOR 10/11/2021 [facility] DATE CREATED AUTHOR AUTHOR'S ORGANIZ ATION 12/10/2023 [facility] ([place]) DATE CREATED AUTHOR AUTHOR'S ORGANIZ ATION 05/22/2024 [facility] Care Teams (unrecognized sec tion and content) Team Status: Active Member Role Status Dates No Primary Care Physician Primary Care Provider Active Team Status: Inactive Member Role Status Dates No Primary Care Physician Primary Care Provider Active Ed Physician Provider Emergency Provider Active Goals (unrecognized section and content) Goals may be documented in a n alternate section FOR RECORDS PERTAINING TO PATIENTS WHO ARE OR HAVE BEEN ENROLLED IN A CHEMICAL DEPENDENCY/SUBSTANCEABUSE PROGRAM, SOME INFORMATION MAY BE OMITTED. This clinical summary was aggregated from multiple sources. Caution should be exercised in using it in the provision of clinical care. This summary normalizes information from multiple sources, and as a consequence, information in this document may materially change the coding, format and clinical context of patient data. In addition, data may be omitted in some cases. CLINICAL DECISIONS SHOULD BE BASED ON THE PRIMARY CLINICAL RECORDS. [facility]. provides no warranty or guarantee of the accuracy or completeness of information in this document.
[2025-06-30 16:36] LABS: Hematocrit 39.3 % (37-47); Hemoglobin 13.5 g/dL (12.0-15.0); Immature Granulocytes Count 0.020 X10^3/uL (0.0-0.0); Mean Corp Hgb Conc 34.4 g/dL (32-36); Mean Corpuscular Volume 93.3 fL (81-99); Mean Platelet Vol. 10.4 fl (6.2-12.0); NRBC Flagged by Analyzer 0 % (0-5); Platelet Count 353 K/mm3 (150-450); RBC Distribution Width CV 12.9 % (11.6-14.6); RBC Distribution Width SD 43.9 fl (35.1-43.9); Red Blood Count 4.21 M/mm3 (4.2-5.4); White Blood Count 8.5 K/mm3 (4.4-11.0)
[2025-06-30 17:09] LABS: AST(SGOT) 18 U/L (<=31); Alanine Aminotransfer ALT/SGPT 11 U/L (<=34); Albumin, Serum 4.5 g/dL (3.5-5.0); Alkaline Phosphatase 82 U/L (35-104); Anion Gap 11 (5-15); BUN 11 mg/dL (4-19); BUN/Creat Ratio 17.7 RATIO (10-20); Calcium,Total 9.8 mg/dL (7.6-11.0); Carbon Dioxide 20.1 mmol/L (21.0-32.0); Chloride 106 mmol/L (98-108); Cholesterol 166 mg/dL (<=200); Globulin 2.7 g/dL (2.2-4.2); Glucose 101 mg/dL (70-99); Low Density Lipoprotein Calc. 99 mg/dL; Potassium 3.9 mmol/L (3.3-5.1); Triglycerides 33 mg/dL; Very Low Density Lipoprotein 7 mg/dL (5-40); cholesterol:hdl ratio screen 2.78
== END | disposition home or self-care (01) ==
LOC: VSLAB 12:20
PROVIDERS: PCP Nurse Practitioner Family; Visit Provider Nurse Practitioner Family
DX: E16.2 Hypoglycemia, unspecified (principal); Z13.220 Encounter for screening for lipoid disorders
CPT/HCPCS: 36415; 80053; 80061; 83036; 85025